=== PATIENT | male | born 1990 | race Caucasian/White ===

== ENCOUNTER 2016-09-12 18:34 | Inpatient (IN) | payer OTHER ==
[~2016-09-12] VITALS: Ht 182.9 cm; Wt 70.2 kg
[2016-09-12 18:49] LABS: EOSINOPHIL (%) 0.4 % (0-5); EOSINOPHIL COUNT 0.1 K/uL (0-0.3); IMMATURE GRANULOCYTE (%) 0.3 % (0.0-0.7); IMMATURE GRANULOCYTE COUNT 0.4 K/uL; LYMPHOCYTE COUNT 1.8 K/uL (1.0-2.8); MCH 32.9 PG (29.0-34.0); MCHC 35.5 G/DL (30.0-36.0); MCV 92.8 FL (86-99); MEAN PLAT.VOLUME 9.7 uM^3 (9.0-12.4); MONOCYTE (%) 4.2 % (3-12); MONOCYTE COUNT 0.6 K/uL (0-0.8); NEUTROPHIL (%) 82.4 % (45-76); NEUTROPHIL COUNT 11.7 K/uL (1.8-6.4); PLATELET COUNT 239 K/uL (156-360); RBC DIS.WIDTH-CV 12.6 % (11.8-14.6); RBC DIS.WIDTH-SD 41.3 % (39-53); RED BLOOD COUNT 4.74 M/uL (4.00-5.50); WHITE BLOOD COUNT 14.2 K/uL (4.1-10.2)
[2016-09-12 19:00] LABS: AMYLASE 41 IU/L (1-118); CHLORIDE 108 mEq/L (99-109); POTASSIUM 3.4 mEq/L (3.7-5.4); SODIUM 143 mEq/L (136-147)
[2016-09-12 19:02] LABS: GLUCOSE 89 mg/dL (70-99)
[2016-09-12 19:03] LABS: ANION GAP 13 MEQ/L (2-14)
[2016-09-12 19:05] LABS: SERUM ETHYL ALCOHOL 157 mg/dL
[2016-09-12 19:06] LABS: UREA NITROGEN (BUN) 11 mg/dL (9-23)
[2016-09-12 19:08] LABS: GFR ESTIMATE (CALCULATED) > 59 mL/min/; LIPASE 10 U/L (1.0-51.0)
[2016-09-12 22:00] VITALS: BP 141/82
[2016-09-12 22:13] VITALS: BP 141/82
[2016-09-13 04:39] VITALS: BP 139/85
[2016-09-13 06:38] LABS: HEMATOCRIT 39.4 % (38.0-50.0); MCH 33.4 PG (29.0-34.0); MCV 95.4 FL (86-99); MEAN PLAT.VOLUME 10.5 uM^3 (9.0-12.4); PLATELET COUNT 210 K/uL (156-360); RBC DIS.WIDTH-CV 12.8 % (11.8-14.6); RBC DIS.WIDTH-SD 44.8 % (39-53); RED BLOOD COUNT 4.13 M/uL (4.00-5.50); WHITE BLOOD COUNT 10.4 K/uL (4.1-10.2)
[2016-09-13 06:46] LABS: INTER. NORMALIZED RATIO 1.1; PROTHROMBIN TIME 10.7 (9.2-11.2); PTT 25.1 (25-32)
[2016-09-13 07:00] LABS: ANION GAP 11 MEQ/L (2-14); CHLORIDE 103 MEQ/L (99-109); GFR ESTIMATE (CALCULATED) > 59 mL/min/; GLUCOSE 85 mg/dL (70-99); SAMPLE HEMOLYSIS CHECK 0; SAMPLE ICTERIC CHECK 0; SAMPLE LIPEMIA CHECK 0; SODIUM 140 MEQ/L (136-147); UREA NITROGEN (BUN) 13 mg/dL (9-23)
[2016-09-13 07:13] LABS: POTASSIUM 4.4 MEQ/L (3.7-5.4)
[2016-09-13 07:19] VITALS: BP 141/83
[2016-09-13 11:52] VITALS: BP 137/80
[2016-09-13 17:05] VITALS: BP 125/85
[2016-09-13 19:51] VITALS: BP 137/88
[2016-09-14] VITALS: BP 121/78
[2016-09-14 03:37] VITALS: BP 123/71
[2016-09-14 08:02] VITALS: BP 132/79
[2016-09-14] MEDS ORDERED: ENDOCET 5-3251 EACH PO (08:54)
[2016-09-14] MEDS ORDERED: LOVENOX30 MG/0.3 SC (08:54)
[2016-09-14] MEDS ORDERED: LOVENOX40 MG/0.4 SC (12:31)
== END 2016-09-14 15:13 | disposition home or self-care (01) | DRG 482 ==
LOC: TRA 18:34 → EDOF 20:09 → 3EAST 21:28
PROVIDERS: Emergency Medicine; Orthopaedic Surgery
PROC: 0QR Lower Bones, Replacement (ICD-10-PCS; principal; 2016-09-13)
DX: S72.322A Displaced transverse fracture of shaft of left femur, initial encounter for closed fracture (principal); V00.312A Snowboarder colliding with stationary object, initial encounter; Y93.23 Activity, snow (alpine) (downhill) skiing, snowboarding, sledding, tobogganing and snow tubing; F12.90 Cannabis use, unspecified, uncomplicated; F10.129 Alcohol abuse with intoxication, unspecified; F17.210 Nicotine dependence, cigarettes, uncomplicated; H54.42 Blindness, left eye, normal vision right eye; G43.909 Migraine, unspecified, not intractable, without status migrainosus; S50.311A Abrasion of right elbow, initial encounter; S00.219A Abrasion of unspecified eyelid and periocular area, initial encounter; S10.91XA Abrasion of unspecified part of neck, initial encounter; Y90.6 Blood alcohol level of 120-199 mg/100 ml; Y92.838 Other recreation area as the place of occurrence of the external cause
CPT/HCPCS: 70450; 71010; 72125; 73552; 73560; 76000; 80048; 81003; 82150; 83690; 85025; 85027; 85610; 85730; 86850; 86900; 86901; 99281; 99285; C1713; G0480; J0131; J0690; J1170; J1650; J2250; J2270; J2405; J3010; J7030